=== PATIENT | female | born 1975 | race Caucasian/White ===

== ENCOUNTER 2018-09-24 18:43 | Emergency (ER) | payer MEDICAID ==
[~2018-09-24] VITALS: Ht 160 cm; Wt 81.6 kg
[2018-09-24 18:49] VITALS: Ht 160 cm; Wt 81.6 kg
[2018-09-24 20:24] VITALS: BP 140/76
== END 2018-09-24 20:24 | disposition home or self-care (01) ==
LOC: ED 18:43
DX: M54.5 Low back pain (principal); E11.9 Type 2 diabetes mellitus without complications